=== PATIENT | female | born 1960 | race Caucasian/White ===

== ENCOUNTER 2021-07-21 11:52 | Emergency (ER) | payer BC ==
[~2021-07-21] VITALS: Ht 157.5 cm; Wt 71.4 kg
[2021-07-21 11:54] VITALS: BP 134/85
--- NOTE | 2021-07-21 12:20 | NUR ---
PATIENT TAKEN TO CT AND XRAY VIA W/C
--- NOTE | 2021-07-21 12:32 | NUR ---
PT RETURNED FROM CT/X RAY
[2021-07-21 12:50] LABS: BASOPHILS % (AUTO) 0.5 % (0.0-2.0); EOSINOPHILS # (AUTO) 0.1 K/uL (0-0.4); EOSINOPHILS % (AUTO) 1.8 % (0.0-4.0); HEMATOCRIT 39.6 % (36-48); HEMOGLOBIN 13.1 g/dL (12.0-16.0); LYMPHOCYTES # (AUTO) 1.7 K/uL (2.5-16.5); LYMPHOCYTES % (AUTO) 30.4 % (20.5-51.1); MEAN CORPUSCULAR HEMOGLOBIN 31 pg (27-31); MEAN CORPUSCULAR HGB CONC 33 g/dL (33-37); MEAN CORPUSCULAR VOLUME 93.5 fL (80-94); MONOCYTES # (AUTO) 0.4 K/uL (0.8-1.0); MONOCYTES % (AUTO) 7.6 % (1.7-9.3); NEUTROPHILS # (AUTO) 3.3 K/uL (1.8-7.7); NEUTROPHILS % (AUTO) 59.7 % (42.2-75.2); PLATELET COUNT (AUTO) 323 K/uL (140-450); RED BLOOD CELL COUNT(AUTO) 4.24 MIL/uL (4.20-5.40); RED CELL DISTRIBUTION WIDTH 13.5 % (11.6-13.7); WHITE BLOOD COUNT (AUTO) 5.5 K/uL (4.8-10.8)
[2021-07-21] MEDS ORDERED: KETOROLAC 30 MG/ML VIAL IVP ONE (12:50)
[2021-07-21] MEDS ORDERED: NACL 0.9% 1,000 ML IV ONE (12:50)
[2021-07-21] MEDS ORDERED: ONDANSETRON 4 MG/2 ML VIAL IVP ONE (12:50)
--- NOTE | 2021-07-21 12:55 | NUR ---
60/F PRESENTS TO ED WITH C/O SYNCOPAL YESTERDAY THAT OCCURRED YESTERDAY AT HOME. PATIENT REPORTS FEELING DIZZY AND FALLING ONTO HER LEFT SIDE, HITTING HER HEAD. PATIENT UNSURE HOW LONG SHE WAS UNCONSCIOUS, REPORTS SHE HAS HAD SIMILAR EPISODES IN THE PAST STATING SHE WAS TOLD IT WAS RELATED TO HER HTN. PATIENT REPORTS TODAY 6/10 HEAD AND LEFT ARM PAIN AND NAUSEA, DENIES CP, SOB, V/D.
[2021-07-21 13:01] LABS: ALBUMIN 3.5 g/dL (3.4-5.0); ANION GAP 10.5 (8-16); ASPARTATE AMINOTRANSFERASE 21 U/L (15-37); CARBON DIOXIDE 26.4 mmol/L (21-32); CHLORIDE 111 mmol/L (98-107); CREATININE 0.6 mg/dL (0.6-1.3); GFR ARICAN-AMERICAN 132 mL/min (>90); GLUCOSE 91 mg/dL (74-106); POTASSIUM 3.9 mmol/L (3.5-5.1); SODIUM SERUM 144 mmol/L (136-145); TOTAL BILIRUBIN 0.5 mg/dL (0.0-1.0); UREA NITROGEN, BLOOD 17 mg/dL (7-18)
[2021-07-21] MEDS ORDERED: IBUP-2213 PO (13:28)
[2021-07-21] MEDS ORDERED: ONDA8TAB87 PO (13:28)
[2021-07-21] MEDS ORDERED: CIPR500T4 PO (13:28)
[2021-07-21 13:43] VITALS: BP 105/59
--- NOTE | 2021-07-21 13:43 | NUR ---
IV removed, catheter intact and site benign. Applied folded 4x4 gauze and tape to stop bleeding.
--- NOTE | 2021-07-21 13:44 | NUR ---
Patient discharged with v/s stable. Written and verbal after care instructions ABOUT UTI AND SYNCOPE given and explained. Patient alert, oriented and verbalized understanding of instructions. Ambulatory with steady gait. All questions addressed prior to discharge. ID band removed. Patient advised to follow up with PMD. Rx of ZOFRAN, CIPRO AND IBUPROFEN given. Patient educated on indication of medication including possible reaction and side effects. Opportunity to ask questions provided and answered.
--- NOTE | 2021-07-25 11:42 | NUR ---
LATE ENTRY. RECEIVED POSITIVE URINE CULTURE. DISCREPANCY LOG SIGNED BY DR WHITE, TREATMENT APPROPRIATE. FORM PLACED IN BINDER.
== END 2021-07-21 13:44 | disposition home or self-care (01) ==
LOC: MED 11:52
DX: R55 Syncope and collapse (principal); N39.0 Urinary tract infection, site not specified; R11.2 Nausea with vomiting, unspecified; Z88.0 Allergy status to penicillin; Z90.49 Acquired absence of other specified parts of digestive tract; Z98.890 Other specified postprocedural states
CPT/HCPCS: 36415; 70450; 71045; 80053; 81002; 81025; 84484; 85025; 87086; 96361; 96374; 96375; 99285; J1885; J2405; Q0092; 93005; J7030

== ENCOUNTER 2023-01-26 19:28 | Emergency (ER) | payer BC ==
[~2023-01-26] VITALS: Ht 154.9 cm; Wt 71.2 kg
[~2023-01-26 19:28] MED LIST: CIPR500T4 PO; IBUP-2213 PO; ONDA8TAB87 PO
[2023-01-26 19:47] VITALS: BP 121/69; PULSE 78; RESP 16; TEMP 97.2; O2SAT 97
[2023-01-26] MEDS ORDERED: KETOROLAC 30 MG/ML VIAL IM ONE (20:40)
[2023-01-26] MEDS ORDERED: IBUP-2213 PO (21:42)
[2023-01-26] MEDS ORDERED: EMLAC TP (21:42)
[2023-01-26] MEDS ORDERED: ACET-10509 PO (21:42)
[2023-01-26 22:01] VITALS: BP 121/69; PULSE 78; RESP 16; TEMP 97.2; O2SAT 97
== END 2023-01-26 22:01 | disposition home or self-care (01) ==
LOC: MED 19:28
DX: S43.402A Unspecified sprain of left shoulder joint, initial encounter (principal); Z90.49 Acquired absence of other specified parts of digestive tract; Z98.890 Other specified postprocedural states; Z79.899 Other long term (current) drug therapy; Z79.1 Long term (current) use of non-steroidal anti-inflammatories (NSAID); Z79.2 Long term (current) use of antibiotics; Z88.0 Allergy status to penicillin; W18.39XA Other fall on same level, initial encounter; Y92.89 Other specified places as the place of occurrence of the external cause; Y93.89 Activity, other specified; Y99.8 Other external cause status
CPT/HCPCS: 73030; 96372; 99283; J1885